=== PATIENT | female | born 1960 | race Caucasian/White ===

== ENCOUNTER 2017-12-14 12:42 | Emergency (ER) | payer OTHER ==
[~2017-12-14] VITALS: Ht 162.6 cm; Wt 59.0 kg
[~2017-12-14 12:42] MED LIST: ALDOMET250 MG; MOTRIN800 MG PO; SINGULAIR10 MG
[2017-12-14] MEDS ORDERED: BACTRIM DS TAB1 EACH PO (15:14)
== END 2017-12-14 15:25 | disposition home or self-care (01) ==
LOC: ER 12:42
DX: B34.9 Viral infection, unspecified (principal); N39.0 Urinary tract infection, site not specified

== ENCOUNTER 2019-03-21 14:25 | Emergency (ER) | payer OTHER ==
[~2019-03-21] VITALS: Ht 162.6 cm; Wt 59.0 kg
[~2019-03-21 14:25] MED LIST changes: +BACTRIM DS TAB1 EACH PO
[2019-03-21] MEDS ORDERED: LOSARTAN POTASS50 MG (14:45)
== END 2019-03-21 22:44 | disposition home or self-care (01) ==
LOC: ER 14:25
DX: S01.82XA Laceration with foreign body of other part of head, initial encounter (principal); S53.125A Posterior dislocation of left ulnohumeral joint, initial encounter; W18.39XA Other fall on same level, initial encounter; Y93.89 Activity, other specified; Y92.098 Other place in other non-institutional residence as the place of occurrence of the external cause; Y99.8 Other external cause status

== ENCOUNTER → 2019-03-30 | Emergency (ER) | payer OTHER ==
[~2019-03-30] VITALS: Ht 162.6 cm; Wt 59.0 kg
[~2019-03-30] MED LIST changes: +LOSARTAN POTASS50 MG
== END | disposition home or self-care (01) ==
LOC: ER 11:05
DX: Z48.02 Encounter for removal of sutures (principal)

== ENCOUNTER 2021-01-27 17:17 | Emergency (ER) | payer OTHER ==
[~2021-01-27] VITALS: Ht 162.6 cm; Wt 75.3 kg
[2021-01-27] MEDS ORDERED: TAMS0.4C PO (19:43)
[2021-01-27] MEDS ORDERED: KETO10TA2 PO (19:43)
== END 2021-01-27 20:25 | disposition home or self-care (01) ==
LOC: ER 17:17 → EMR PED 17:21 → ER 20:25
DX: N20.0 Calculus of kidney (principal); R10.32 Left lower quadrant pain

== ENCOUNTER 2022-12-09 22:41 | Emergency (ER) | payer OTHER ==
[~2022-12-09] VITALS: Ht 162.6 cm; Wt 56.7 kg
[~2022-12-09 22:41] MED LIST changes: +KETO10TA2 PO; +TAMS0.4C PO
[2022-12-09] MEDS ORDERED: HYDROCHLOROTHIA25 MG PO (23:18)
[2022-12-09] MEDS ORDERED: POTASSIUM CITR15 MEQ PO (23:18)
[2022-12-10] MEDS ORDERED: DICLOFENAC SODI75 MG PO (01:48)
== END 2022-12-10 01:58 | disposition home or self-care (01) ==
LOC: ER 22:41
DX: M77.8 Other enthesopathies, not elsewhere classified (principal); I10 Essential (primary) hypertension

== ENCOUNTER 2023-08-31 07:09 | Outpatient (CLI) | payer OTHER ==
[~2023-08-31 07:09] MED LIST changes: +DICLOFENAC SODI75 MG PO; +HYDROCHLOROTHIA25 MG PO; +POTASSIUM CITR15 MEQ PO
== END 2023-08-31 07:21 | disposition home or self-care (01) ==
LOC: TOM 07:09
PROVIDERS: ATTEND Internal Medicine Gastroenterology
DX: D12.4 Benign neoplasm of descending colon (principal); R10.9 Unspecified abdominal pain

== ENCOUNTER 2024-10-24 06:03 | Emergency (ER) | payer OTHER ==
[~2024-10-24] VITALS: Ht 162.6 cm; Wt 58.1 kg
[2024-10-24] MEDS ORDERED: PROMETHAZINE HCL 25 MG/ML AMPUL IM STA (07:12)
[2024-10-24] MEDS ORDERED: METOCLOPRAMIDE HCL 5 MG/ML VIAL IM STA (07:12)
[2024-10-24] MEDS ORDERED: FAMOtidine 10 MG/ML (4ML VIAL) IV PUSH STA (07:13)
[2024-10-24] MEDS ORDERED: 0.9 % SODIUM CHLORIDE 1,000 ML IV STA (07:13)
[2024-10-24] MEDS ORDERED: HYOSCYAMINE SULFATE 0.125 MG TAB.SUBL SL ONE (07:15)
[2024-10-24] MEDS ORDERED: PROMETHAZINE HCL 25 MG/ML AMPUL ONE (07:24)
[2024-10-24] MEDS ORDERED: HYOSCYAMINE SULFATE 0.125 MG TAB.SUBL ONE (07:24)
[2024-10-24] MEDS ORDERED: METOCLOPRAMIDE HCL 5 MG/ML VIAL ONE (07:25)
[2024-10-24] MEDS ORDERED: FAMOTIDINE/PF 20 MG/2 ML VIAL ONE (07:26)
[2024-10-24] MEDS ORDERED: MAG HYDROX/ALUMINUM HYD/SIMETH 30 ML BLIST.PACK PO ONE ×2 (10:15→10:17)
== END 2024-10-24 13:06 | disposition home or self-care (01) ==
LOC: ER 06:06
DX: K21.9 Gastro-esophageal reflux disease without esophagitis (principal); I10 Essential (primary) hypertension

== ENCOUNTER 2024-11-24 06:55 | Emergency (ER) | payer OTHER ==
[~2024-11-24] VITALS: Ht 162.6 cm; Wt 59.0 kg
[2024-11-24] MEDS ORDERED: TAMSULOSIN HCL 0.4 MG CAP PO ONE ×2 (08:30→08:47)
[2024-11-24 08:40] LABS: HEMATOCRIT 39.4 % (36.0-45.00); HEMOGLOBIN 13.3 g/dL (12.0-15.00); MEAN CELL VOLUME 87.8 fL (80.00-100.00); MEAN CORPUSCULAR HEMOGLOBIN 29.6 pg (27.00-32.0); MEAN CORPUSCULAR HGB CONC 33.8 g/dl (32.0-36.0); PLATELET COUNT 257 K/uL (150-450); RED BLOOD COUNT 4.48 M/uL (4.00-6.00); RED CELL DISTRIBUTION WIDTH 14.1 % (11.5-14.5)
[2024-11-24 09:37] LABS: PH,URINE 7.5 (5.0-8.0); URINE APPEARANCE Clear; URINE BILIRRUBIN Negative (NEGATIVE); URINE BLOOD NHT; URINE COLOR Yellow; URINE GLUCOSE Negative (NEGATIVE); URINE KETONE Trace (NEGATIVE); URINE LEUKOCYTE Small; URINE NITRATE Negative; URINE PROTEIN Negative (NEGATIVE); URINE UROBILINOGEN 0.2 E.U./dl
[2024-11-24 09:43] LABS: URINE EPITHELIAL CELLS 3.3 uL (0.0-38.8); URINE RBC 108.5 uL (0.0-20.8); URINE WBC 37.6 uL (0.0-23.2)
== END 2024-11-24 10:55 | disposition home or self-care (01) ==
LOC: ER 06:57
PROVIDERS: Emergency Medicine
DX: R10.9 Unspecified abdominal pain (principal); I10 Essential (primary) hypertension; J45.909 Unspecified asthma, uncomplicated; Z87.442 Personal history of urinary calculi; N20.0 Calculus of kidney; N20.1 Calculus of ureter

== ENCOUNTER 2025-08-09 07:48 | Emergency (ER) | payer OTHER ==
[~2025-08-09] VITALS: Ht 162.6 cm; Wt 61.2 kg
[2025-08-09] MEDS ORDERED: IPRATROPIUM/ALBUTEROL SULFATE 3 ML AMPUL.NEB IH ONE ×2 (08:15→09:04)
[2025-08-09] MEDS ORDERED: METHYLPREDNISOLONE SOD SUCC 40 MG VIAL IM ONE (08:15)
[2025-08-09] MEDS ORDERED: BENZONATATE 100 MG CAPSULE PO ONE (08:15)
[2025-08-09] MEDS ORDERED: METHYLPREDNISOLONE SOD SUCC 40 MG VIAL ONE (08:25)
[2025-08-09 09:08] LABS: COVID-19 AG NEGATIVE (NEGATIVE)
[2025-08-09] MEDS ORDERED: BENZONATATE200 M1 PO (09:54)
== END 2025-08-09 10:07 | disposition home or self-care (01) ==
LOC: ER 07:48
PROVIDERS: Student in an Organized Health Care Education/Training Program
DX: J45.901 Unspecified asthma with (acute) exacerbation (principal); R05.8 Other specified cough; I10 Essential (primary) hypertension; Z20.822 Contact with and (suspected) exposure to COVID-19